=== PATIENT | female | born 1990 | race Caucasian/White ===

== ENCOUNTER 2018-10-11 23:54 | Emergency (ER) | payer OTHER ==
[~2018-10-11] VITALS: Ht 177.8 cm; Wt 149.7 kg
[2018-10-12] MEDS ORDERED: IV NORMAL SALINE 1000ML BAG 1,000 ML IV ONE (00:30)
[2018-10-12 00:42] LABS: BASO # 0.2 x10^3/uL (0.0-0.2); BASO % 1 % (0-3); EOS # 0.1 x10^3/uL (0.0-0.7); EOS % 1 % (0-3); HEMATOCRIT 39.1 % (36.0-47.0); HEMOGLOBIN 13.1 g/dL (12.0-15.5); LYMPH # 5.1 x10^3/uL (1.0-4.8); LYMPH % 34 % (24-48); MEAN CORPUSCULAR HEMOGLOBIN 25 pg (25-35); MEAN CORPUSCULAR HGB CONC 33 g/dL (31-37); MEAN CORPUSCULAR VOLUME 75 fL (79-100); MONO # 0.7 x10^3/uL (0.0-1.1); MONO % 5 % (0-9); NEUT # 8.9 x10^3uL (1.8-7.7); NEUT % 60 % (31-73); PLATELET COUNT 382 x10^3/uL (140-400); RED BLOOD COUNT 5.19 x10^6/uL (3.50-5.40); RED CELL DISTRIBUTION WIDTH 15.2 % (11.5-14.5); WHITE BLOOD COUNT 14.9 x10^3/uL (4.0-11.0)
[2018-10-12 00:55] LABS: PROTHROMBIN TIME PATIENT 13.8 SEC (11.7-14.0)
[2018-10-12 00:58] LABS: CALCIUM 9.8 mg/dL (8.5-10.1); POTASSIUM 3.8 mmol/L (3.5-5.1)
[2018-10-12 01:04] LABS: ALBUMIN 3.4 g/dL (3.4-5.0); ALBUMIN/GLOBULIN RATIO 0.6 (1.0-1.7); MAGNESIUM 2.1 mg/dL (1.8-2.4); TOTAL BILIRUBIN 0.4 mg/dL (0.2-1.0); TOTAL PROTEIN 8.8 g/dL (6.4-8.2)
[2018-10-12] MEDS ORDERED: LABETALOL 20 MG/4 ML DISP.SYRIN. IVP ONE (01:15)
[2018-10-12 01:28] LABS: D-DIMER 0.38 ug/mlFEU (0.00-0.50)
--- NOTE | 2018-10-12 01:45 | RAD ---
Chest AP portable at 12:18 AM: Reason for examination: Chest pain and shortness of breath. The heart size is normal. Mediastinum is unremarkable. Lung moody are clear. No acute bony abnormalities are seen. Impression: No acute cardiopulmonary disease. Electronically signed by: Shameka Stoll MD (10/12/2018 1:41 AM) [facility]
[2018-10-12] MEDS ORDERED: cloNIDine HCL 0.1 MG TABLET PO ONE (02:00)
[2018-10-12] MEDS ORDERED: HYDR12.575 PO (02:20)
[2018-10-12 03:50] VITALS: BP 146/75
--- NOTE | 2018-10-12 03:51 | PHYS DOC ---
Past Medical History Past Medical History: Other Additional Past Medical Histor: LEAKING HEART VALVE IN 2006 AFTER Past Surgical History: Additional Past Surgical Histo: X 2 Alcohol Use: Rarely Drug Use: None Adult General Chief Complaint Chief Complaint: RAPID HEART RATE HPI HPI Patient is a 27 year old female who presents with feeling her heart is racing as well as feeling like she is on cloud and also had some burning pain around her left shoulder this occurred approximately 30 minutes prior to arrival. Symptoms are moderate they are she better now than they were before. No shortness of breath really Review of Systems Review of Systems Constitutional: Denies fever or chills [] Eyes: Denies change in visual acuity, redness, or eye pain [] HENT: Denies nasal congestion or sore throat [] Respiratory: Cardiovascular: No additional information not addressed in HPI [] GI: Denies abdominal pain, nausea, vomiting, bloody stools or diarrhea [] : Denies dysuria or hematuria [] Musculoskeletal: Denies back pain or joint pain [] Integument: Denies rash or skin lesions [] Neurologic: Denies headache, focal weakness or sensory changes [] Endocrine: Denies polyuria or polydipsia [] All other systems were reviewed and found to be within normal limits, except as documented in this note. Current Medications Current Medications Current Medications Medications (Trade) Dose Ordered Sig/Rosa Maria Start Time Stop Time Status Last Admin Dose Admin Clonidine HCl (Catapres) 0.2 mg 1X ONCE 10/12/18 02:00 10/12/18 02:02 DC Labetalol HCl (Normodyne Iv Push) 20 mg 1X ONCE 10/12/18 01:15 10/12/18 01:16 DC 10/12/18 01:15 20 MG Sodium Chloride 1,000 ml @ 1,000 mls/hr 1X ONCE 10/12/18 00:30 10/12/18 01:29 DC 10/12/18 00:35 1,000 MLS/HR Allergies Allergies Allergies Coded Allergies Type Severity Reaction Last Updated Verified No Known Drug Allergies 10/12/18 No Physical Exam Physical Exam Constitutional: Well developed, well nourished, no acute distress, non-toxic appearance. [] HENT: Normocephalic, atraumatic, bilateral external ears normal, oropharynx moist, no oral exudates, nose normal. [] Eyes: PERRLA, EOMI, conjunctiva normal, no discharge. [] Neck: Normal range of motion, no tenderness, supple, no stridor. [] Cardiovascular mild tachycardia no murmurs noted Lungs & Thorax: Bilateral breath sounds clear to auscultation [] Abdomen: Bowel sounds normal, soft, no tenderness, no masses, no pulsatile masses. [] Skin: Warm, dry, no erythema, no rash. [] Back: No tenderness, no CVA tenderness. [] Extremities: No tenderness, no cyanosis, no clubbing, ROM intact, no edema. [] Neurologic: Alert and oriented X 3, normal motor function, normal sensory function, no focal deficits noted. [] Psychologic: Affect normal, judgement normal, mood anxiety noted. [] Current Patient Data Vital Signs Vital Signs Date Time Temp Pulse Resp B/P (MAP) Pulse Ox O2 Delivery O2 Flow Rate FiO2 10/12/18 02:15 80 18 159/70 (99) 100 Room Air 10/11/18 23:55 98.2 98.2 Lab Values Laboratory Tests Test 10/12/18 00:10 10/12/18 03:10 White Blood Count 14.9 x10^3/uL (4.0-11.0) H Red Blood Count 5.19 x10^6/uL (3.50-5.40) Hemoglobin 13.1 g/dL (12.0-15.5) Hematocrit 39.1 % (36.0-47.0) Mean Corpuscular Volume 75 fL (79-100) L Mean Corpuscular Hemoglobin 25 pg (25-35) Mean Corpuscular Hemoglobin Concent 33 g/dL (31-37) Red Cell Distribution Width 15.2 % (11.5-14.5) H Platelet Count 382 x10^3/uL (140-400) Neutrophils (%) (Auto) 60 % (31-73) Lymphocytes (%) (Auto) 34 % (24-48) Monocytes (%) (Auto) 5 % (0-9) Eosinophils (%) (Auto) 1 % (0-3) Basophils (%) (Auto) 1 % (0-3) Neutrophils # (Auto) 8.9 x10^3uL (1.8-7.7) H Lymphocytes # (Auto) 5.1 x10^3/uL (1.0-4.8) H Monocytes # (Auto) 0.7 x10^3/uL (0.0-1.1) Eosinophils # (Auto) 0.1 x10^3/uL (0.0-0.7) Basophils # (Auto) 0.2 x10^3/uL (0.0-0.2) Prothrombin Time 13.8 SEC (11.7-14.0) Prothrombin Time INR 1.1 (0.8-1.1) D-Dimer (Mya) 0.38 ug/mlFEU (0.00-0.50) Maternal Serum HCG Beta Subunit 1 mIU/mL (0-5) Sodium Level 140 mmol/L (136-145) Potassium Level 3.8 mmol/L (3.5-5.1) Chloride Level 101 mmol/L (98-107) Carbon Dioxide Level 27 mmol/L (21-32) Anion Gap 12 (6-14) Blood Urea Nitrogen 14 mg/dL (7-20) Creatinine 1.0 mg/dL (0.6-1.0) Estimated GFR (Cockcroft-Gault) 66.0 BUN/Creatinine Ratio 14 (6-20) Glucose Level 107 mg/dL (70-99) H Calcium Level 9.8 mg/dL (8.5-10.1) Magnesium Level 2.1 mg/dL (1.8-2.4) Total Bilirubin 0.4 mg/dL (0.2-1.0) Aspartate Amino Transferase (AST) 27 U/L (15-37) Alanine Aminotransferase (ALT) 42 U/L (14-59) Alkaline Phosphatase 83 U/L (46-116) Troponin I Quantitative < 0.017 ng/mL (0.000-0.055) < 0.017 ng/mL (0.000-0.055) [id number]-Type Natriuretic Peptide 16 pg/mL (0-124) Total Protein 8.8 g/dL (6.4-8.2) H Albumin 3.4 g/dL (3.4-5.0) Albumin/Globulin Ratio 0.6 (1.0-1.7) L Thyroid Stimulating Hormone (TSH) 4.533 uIU/mL (0.358-3.74) H Laboratory Tests 10/12/18 00:10 Laboratory Tests 10/12/18 00:10 EKG EKG [] Interpretation Time: EKG shows a sinus tachycardia rate 110 intervals normal no STEMI interpreted by me time of encounter Radiology/Procedures Radiology/Procedures [] Impressions: Chest x-ray negative Course & Med Decision Making Course & Med Decision Making Pertinent Labs and Imaging studies reviewed. (See chart for details) []19-year-old female presenting with palpitations and some burning chest discomfort troponins negative 2 d-dimer was negative chest x-ray clear. Patient did have elevated blood pressure up to the 190 range she was given labetalol as of 3:50 AM blood pressure 146/75 she will given low-dose hctz and instructed to follow-up with primary care doctor within 1-2 weeks. She is feeling much better after the emergency room treatment. No signs of PE dissection or SD. Dragon Disclaimer Dragon Disclaimer This electronic medical record was generated, in whole or in part, using a voice recognition dictation system. Departure Departure Impression: Primary Impression: Elevated blood pressure reading Disposition: HOME, SELF-CARE Condition: STABLE Patient Instructions: Hypertension Scripts Hydrochlorothiazide (HYDROCHLOROTHIAZIDE CAPSULE ) 12.5 Mg Capsule 12.5 MG PO DAILY for DIURETIC, #30 CAP 0 Refills Prov: MARNI DICKSON MD 10/12/18 MARNI DICKSON MD Oct 12, 2018 03:51
--- NOTE | 2018-10-12 06:11 | EKG ---
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
== END 2018-10-12 03:55 | disposition home or self-care (01) ==
LOC: ER 23:54
DX: I10 Essential (primary) hypertension (principal)
CPT/HCPCS: 36415; 71045; 80053; 83735; 83880; 84443; 84484; 84702; 85025; 85379; 85610; 93005; 96374; 99284; J3490; J7030

== ENCOUNTER 2018-11-21 08:24 | Emergency (ER) | payer OTHER ==
[~2018-11-21] VITALS: Ht 175.3 cm; Wt 147.4 kg
[~2018-11-21 08:24] MED LIST: HYDR12.575 PO
[2018-11-21 08:55] VITALS: BP 158/85
[2018-11-21] MEDS: HYDROcodone/APAP 5/325MG 1 TAB TABLET PO ONE (09:21)
--- NOTE | 2018-11-21 09:37 | RAD ---
Examination: TIBIA FIBULA RIGHT, ANKLE RIGHT 3V History: Fell at work this morning on ice. Pain. Comparison/Correlation: None Findings: Frontal and lateral views of the right tibia and fibula were obtained. Frontal view, oblique view, lateral view of the right ankle were also provided. Joint spaces are normal. No acute fracture or bony destructive change. Cortical lucencies involving the proximal right tibia which are most compatible with nutrient foramina are present. Soft tissues about the ankle are unremarkable. Impression: No acute fracture. No degenerative change. Electronically signed by: Grey Francisco MD (11/21/2018 9:33 AM) [id number]
--- NOTE | 2018-11-21 10:00 | PHYS DOC ---
Past Medical History Past Medical History: Hypertension, Hypothyroid, Other Additional Past Medical Histor: LEAKING HEART VALVE IN 2006 AFTER Past Surgical History: Additional Past Surgical Histo: X 2 Alcohol Use: Rarely Drug Use: None Adult General Chief Complaint Chief Complaint: ANKLE PROBLEM HPI HPI Patient is a 27 year old female who presents with pain in her left foot ankle and lower tib-fib after she slipped on ice leaving work at [employer] this morning. She states that she heard a pop. She states that it is very painful to put weight on the extremity. The patient denies any other injury. Review of Systems Review of Systems Constitutional: Denies fever or chills [] Respiratory: Denies cough or shortness of breath [] Cardiovascular: No additional information not addressed in HPI [] GI: Denies abdominal pain, nausea, vomiting, bloody stools or diarrhea [] : Denies dysuria or hematuria [] Musculoskeletal: See history of present illness Integument: Denies rash or skin lesions [] Neurologic: Denies headache, focal weakness or sensory changes [] Endocrine: Denies polyuria or polydipsia [] All other systems were reviewed and found to be within normal limits, except as documented in this note. Current Medications Current Medications Current Medications Medications (Trade) Dose Ordered Sig/Rosa Maria Start Time Stop Time Status Last Admin Dose Admin Acetaminophen/ Hydrocodone Bitart (Lortab 5/325) 1 tab 1X ONCE 11/21/18 09:00 11/21/18 09:02 DC 11/21/18 09:21 1 TAB Allergies Allergies Allergies Coded Allergies Type Severity Reaction Last Updated Verified No Known Drug Allergies 10/12/18 No Physical Exam Physical Exam Constitutional: Well developed, well nourished, no acute distress, non-toxic appearance. [] Cardiovascular:Heart rate regular rhythm, no murmur [] Lungs & Thorax: Bilateral breath sounds clear to auscultation [] Abdomen: Bowel sounds normal, soft, no tenderness, no masses, no pulsatile masses. [] Extremities: Generalized tenderness to mid marie into foot, no cyanosis, no clubbing, ROM decreased due to pain, no edema, pulses and sensation are intact distal to injury.. [] Neurologic: Alert and oriented X 3, normal motor function, normal sensory function, no focal deficits noted. [] Psychologic: Affect normal, judgement normal, mood normal. [] Current Patient Data Vital Signs Vital Signs Date Time Temp Pulse Resp B/P (MAP) Pulse Ox O2 Delivery O2 Flow Rate FiO2 11/21/18 09:21 20 99 11/21/18 08:55 98.8 100 158/85 (109) Room Air 98.8 EKG EKG [] Radiology/Procedures Radiology/Procedures [] Course & Med Decision Making Course & Med Decision Making Pertinent Labs and Imaging studies reviewed. (See chart for details) [] Dragon Disclaimer Dragon Disclaimer This electronic medical record was generated, in whole or in part, using a voice recognition dictation system. Departure Departure Impression: Primary Impression: Ankle sprain Disposition: HOME, SELF-CARE Condition: STABLE Referrals: NO PCP (PCP) Patient Instructions: Ankle Sprain Additional Instructions: Follow-up with your facility for further Workmen's Compensation instructions. RICE the extremity. You may use ibuprofen or Tylenol for pain. If worsening follow-up with your primary care provider for referral to orthopedics. Scripts Tramadol Hcl (TRAMADOL HCL) 50 Mg Tablet 50 MG PO DAILY PRN for PAIN, #10 TAB 0 Refills Prov: KENISHA KHANNA APRN 11/21/18 KENISHA KHANNA APRN Nov 21, 2018 10:00
[2018-11-21] MEDS ORDERED: TRAM50TA PO (10:21)
== END 2018-11-21 10:08 | disposition home or self-care (01) ==
LOC: ER 08:24
DX: S93.402A Sprain of unspecified ligament of left ankle, initial encounter (principal); E03.9 Hypothyroidism, unspecified; I10 Essential (primary) hypertension; W00.2XXA Other fall from one level to another due to ice and snow, initial encounter; Y93.89 Activity, other specified; Y92.238 Other place in hospital as the place of occurrence of the external cause; Y99.0 Civilian activity done for income or pay
CPT/HCPCS: 73590; 73610; 99284